=== PATIENT | female | born 1970 | race Caucasian/White ===

== ENCOUNTER → 2017-03-07 | Day surgery (SDC) | payer BC ==
[~2017-03-07] MED LIST: IV NORMAL SALINE 1000ML BAG 1,000 ML IV; IV RINGERS,LACTATED 1000ML 1,000 ML IV; LIDOCAINE 2% PF Vial for OR 5 ML VIAL.; PROPOFOL 20 ML IV
== END | disposition home or self-care (01) ==
LOC: SURG 15:17
DX: K22.2 Esophageal obstruction (principal); K21.0 Gastro-esophageal reflux disease with esophagitis; K29.50 Unspecified chronic gastritis without bleeding; Z86.69 Personal history of other diseases of the nervous system and sense organs; F17.200 Nicotine dependence, unspecified, uncomplicated; Z90.49 Acquired absence of other specified parts of digestive tract; Z90.710 Acquired absence of both cervix and uterus; Z72.0 Tobacco use; Z88.8 Allergy status to other drugs, medicaments and biological substances
CPT/HCPCS: 43239; 88305; J2704